=== PATIENT | female | born 1995 | race Caucasian/White ===

== ENCOUNTER 2017-12-28 18:38 | Emergency (ER) | payer BC, OTHER ==
[2017-12-28 18:47] VITALS: BP 131/92; PULSE 76; RESP 18; TEMP 98.2; O2SAT 99
--- NOTE | 2017-12-28 20:13 | EDPHY ---
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 They are doing a study on chronic back pain patient's. Today after drawing 1 of the patient's blood she accidentally poked her hand with the needle. She immediately washed it. The patient does not have any known HIV risk factors. They had him sign a consent form and brought a vial of his blood for testing. Unfortunately however it is the wrong type of vial for us to test because it has plasma. Our lab also will not accept it even if it was the right vial because we have no way of knowing where the blood actually came from. REVIEW OF SYSTEMS: Constitutional: denies: chills, fever, recent illness, recent injury EENTM: denies: blurred vision, double vision, nose congestion Respiratory: denies: cough, shortness of breath Cardiac: denies: chest pain, irregular heart rate, lightheadedness, palpitations Gastrointestinal/Abdominal: denies: abdominal pain, diarrhea, nausea, vomiting, blood streaked stools Genitourinary: denies: dysuria, frequency, hematuria, pain Musculoskeletal: denies: joint pain, muscle pain Skin: denies: lesions, rash, jaundice, bruising Neurological: denies: headache, numbness, paresthesia, tingling, dizziness, weakness Hematologic/Lymphatic: denies: blood clots, easy bleeding, easy bruising Immunologic/allergic: denies: HIV/AIDS, transplant EXAM: GENERAL: Well-appearing, well-nourished and in no acute distress. HEAD: Atraumatic, normocephalic. EYES: Pupils equal round and reactive to light, extraocular movements intact, sclera anicteric, conjunctiva are normal. ENT: TMs normal, nares patent, oropharynx clear without exudates. Moist mucous membranes. NECK: Normal range of motion, supple without lymphadenopathy or JVD. LUNGS: Breath sounds clear to auscultation bilaterally and equal. No wheezes rales or rhonchi. HEART: Regular rate and rhythm without murmurs, rubs or gallops. ABDOMEN: Soft, nontender, normoactive bowel sounds. No guarding, no rebound. No masses appreciated. BACK: No CVA tenderness, no spinal tenderness, step-offs or deformities EXTREMITIES: Small puncture wound to palm of left hand. NEUROLOGICAL: Cranial nerves II through XII grossly intact. Normal speech, normal gait. 5/5 strength, normal movement in all extremities, normal sensation PSYCH: Normal mood, normal affect. SKIN: Warm, dry, normal turgor, no visible rashes or lesions. Source: Patient Exam Limitations: No limitations - Personal History Current Tetanus/Diphtheria Vaccine: Yes Current Tetanus Diphtheria and Acellular Pertussis (TDAP): Yes Tetanus Vaccine Date: 2016 - Medical/Surgical History Hx Asthma: No Hx Chronic Respiratory Disease: No Hx Diabetes: No Hx Cardiac Disease: No Hx Renal Disease: No Hx Cirrhosis: No Hx Alcoholism: No Hx HIV/AIDS: No Hx Splenectomy or Spleen Trauma: No Other PMH: wisdom teeth - Family History Significant Family History: No pertinent family hx - Social History Smoking Status: Current some day smoker Constitutional: Initial Vital Signs Temperature (C) 36.8 C 12/28/17 18:44 Heart Rate 76 12/28/17 18:44 Respiratory Rate 18 12/28/17 18:44 Blood Pressure 131/92 H 12/28/17 18:44 O2 Sat (%) 99 12/28/17 18:44 O2 Delivery Mode Room Air Allergies/Adverse Reactions: No Known Allergies Allergy (Verified 12/30/17 10:21) Home Medications: Medication Instructions Recorded Control 12/28/17 Spironolactone 12/28/17 Ondansetron Odt [Zofran Odt] 4 mg PO Q4PRN PRN #7 tab 12/30/17 Medical Decision Making ED Course/Re-evaluation: The patient is somewhat tearful and wishes to start HIV prophylaxis. We discussed the fact that her risk of her this exposures very low and that even if the patient had HIV actively her risk would only be about 1 in 300. I spoke with the loss prevention lead who says that this was their protocol and that they were not aware was not going to work. He will try contact the source patient and ask him to come to come to the ER for testing. 8:45 p.m. The patient has decided she does not want to wait. They will try and contact source patient over the weekend and send him to outpatient lab. \she will follow up with work comp and start prophylaxis there if they decide to. She declines further workup or testing here. Differential Diagnosis: Partial list of the Differential diagnosis considered include but were not limited to; needlestick exposure and although unlikely based on the history and physical exam, I also considered infection, foreign body. Departure - Departure Disposition: Home, Routine, Self-Care Clinical Impression: Needlestick injury of finger of left hand Qualifiers: Encounter type: initial encounter Qualified Code(s): S61.239A - Puncture wound without foreign body of unspecified finger without damage to nail, initial encounter; W27.3XXA - Contact with needle (sewing), initial encounter; W27.3XXA - Contact with needle (sewing), initial encounter Condition: Fair Instructions: Postexposure Prophylaxis (ED) Referrals: FRANCISCO HESTER [Primary Care Provider] - As per Instructions
== END 2017-12-28 21:01 | disposition home or self-care (01) ==
DX: S61.432A Puncture wound without foreign body of left hand, initial encounter (principal); F17.200 Nicotine dependence, unspecified, uncomplicated; W27.3XXA Contact with needle (sewing), initial encounter; Y92.214 College as the place of occurrence of the external cause

== ENCOUNTER 2017-12-30 10:12 | Emergency (ER) | payer BC, OTHER ==
[2017-12-30 10:25] VITALS: BP 117/75; PULSE 68; RESP 16; TEMP 98.6; O2SAT 98
[2017-12-30 10:46] LABS: PLATELET COUNT 218 10^3/uL (150-400)
[2017-12-30 10:56] LABS: INR 0.92 (0.83-1.16); PROTIME(PATIENT) 12.6 SEC (12.0-15.0)
--- NOTE | 2017-12-30 10:59 | EDPHY ---
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 She was seen in the emergency department at that time and it was recommended that she get blood work on the source patient however she and her colleagues have been unable to get in contact with the source patient. She therefore followed up with work comp provider today (Saturday ) and they recommend she come to the ER to start HIV prophylaxis. Patient is requesting HIV prophylaxis as well.. She also requests prescription for Zofran noting that in speaking with her father who is a physician, concerns over HIV prophylaxis causing nausea and therefore requesting nausea prophylaxis. The patient does not have access to the Medical Records of the source patient. The study she is working on evaluates biomarkers for chronic back pain. PRIMARY CARE PROVIDER: Worker's compensation REVIEW OF SYSTEMS: A ten point review of systems was performed and is negative with the exception of the items mentioned in the HPI PHYSICAL EXAM (Prior to examination, patient consented to physical exam, hands were washed and my usual and customary physical exam procedures followed) 1) GENERAL: Well-developed, well-nourished, alert and oriented. Appears to be in no acute distress. 2) HEAD: Normocephalic 3) HEENT: sclera anicteric 4) LUNGS: Breathing comfortably. 5) SKIN: Left upper extremity: There is no visible puncture wound, no signs of infection or cellulitis. (Rian Deshpande) Constitutional: Initial Vital Signs Temperature (C) 37 C 12/30/17 10:20 Heart Rate 68 12/30/17 10:20 Respiratory Rate 16 12/30/17 10:20 Blood Pressure 117/75 12/30/17 10:20 O2 Sat (%) 98 12/30/17 10:20 O2 Delivery Mode Room Air Allergies/Adverse Reactions: No Known Allergies Allergy (Verified 12/30/17 10:21) Home Medications: Medication Instructions Recorded Control 12/28/17 Spironolactone 12/28/17 Ondansetron Odt [Zofran Odt] 4 mg PO Q4PRN PRN #7 tab 12/30/17 MDM/Departure - MDM Medications Given: Discontinued Medications Emtricitabine/Tenofovir (Truvada) 1 tab PO EDNOW ONE Stop: 12/30/17 11:10 Last Admin: 12/30/17 11:52 Dose: 1 tab Raltegravir (Isentress) 400 mg PO EDNOW ONE Stop: 12/30/17 11:10 Last Admin: 12/30/17 11:52 Dose: 400 mg ED Course/Re-evaluation: Care of patient under supervision of secondary supervising physician Dr Frye with whom I discussed case . I consulted with on-call Infectious Disease DrGuillermo Calix at 11:07 a.m. who agrees with plan of establishing HIV prophylaxis and patient will follow up in office later this week. (Rian Deshpande ) I did not see this patient while she was in the emergency department. However her care was discussed with the PA while the patient was in the department. I agree with treatment plan and management (Buck Frye) - Depart Disposition: Home, Routine, Self-Care Clinical Impression: Needlestick injury of finger of left hand Qualifiers: Encounter type: initial encounter Qualified Code(s): S61.239A - Puncture wound without foreign body of unspecified finger without damage to nail, initial encounter Condition: Good Instructions: Needle Stick Injuries (ED) Prescriptions: Ondansetron Odt [Zofran Odt] 4 mg PO Q4PRN PRN #7 tab PRN Reason: Nausea Referrals: [facility] [Provider Group] - 1-2 days without fail
[2017-12-30] MEDS ORDERED: RALTEGRAVIR 400 MG TAB PO ONE (11:09)
[2017-12-30] MEDS ORDERED: EMTRICITABINE/TENOFOVIR 200MG/300MG TAB PO ONE (11:09)
[2017-12-30 12:02] LABS: HEPATITIS C ANTIBODY TOTAL NEGATIVE (NEGATIVE); HIV TYPE 1 AND 2 NEGATIVE (NEGATIVE)
== END 2017-12-30 12:09 | disposition home or self-care (01) ==
DX: S61.23 Puncture wound without foreign body of finger without damage to nail (principal); F17.200 Nicotine dependence, unspecified, uncomplicated; W46.0XXD Contact with hypodermic needle, subsequent encounter
CPT/HCPCS: G0472